=== PATIENT | male | born 1955 | race Caucasian/White ===

== ENCOUNTER 2017-01-15 11:22 | Emergency (ER) | payer OTHER ==
[~2017-01-15] VITALS: Ht 177.8 cm; Wt 91.5 kg
[~2017-01-15 11:22] MED LIST: CETI10CA19 PO; GLIM4TAB3 PO; LISI10TA7 PO; METF10002 PO; NAPR500T3 PO; PRAV20TA4 PO
[2017-01-15 11:24] VITALS: TEMP 97.6; Ht 177.8 cm; Wt 91.5 kg
--- OUTSIDE RECORDS SUMMARY | 2017-01-15 11:26 | XMS REPORT | Continuity of Care Document ---
Author Author [facility] Organization [facility] Address Unknown Phone Unavailable Support Name Relationship Address Phone LUZ SOLITARIO DO Caregiver [address] [place] [address] MARINA SINGH II, MD Caregiver [address] [place] [phone] [place] Next Of Kin [id number] [id number] Insurance Providers Payer Name Policy Number Subscriber Name Relationship [employer] [id number] Aaron Miles 18 Self Advance Directives Directive Response Recorded Date/Time Advanced Directives Type None 08/13/14 12:55pm Problems Medical Problems Problem Onset Date Status Costochondritis, acute Unknown Active Medications Medication Dose Route Sig Days/Qty Instructions Order Date Discontinued Date Status Glimepiride 1 Tab PO GIVE WITH BREAKFAST BEST TAKEN WITH BREAKFAST. 04/19 Active Cetirizine HCl 1 Cap PO DAILY 08/13/14 Active Linagliptin/Metformin HCl 1 Tab PO TWICE A DAY 08/13/14 Active Naproxen 1 Tab PO TWICE A DAY 14 Qty 08/13/14 Active Social History Social History Problem Response Recorded Date/Time Tobacco Usage none 08/13/2014 1:01pm Query Response Start Date Stop Date Smoking Status Never smoker Hospital Discharge Instructions No hospital discharge instructions. Plan of Care No plan of care. Functional Status Query Response Date Recorded Physical Hygiene Self August 13, 2014 1:09pm Disabilities Visual August 13, 2014 1:09pm Devices Used Glasses August 13, 2014 1:09pm Dressing Self August 13, 2014 1:09pm Ambulation Self August 13, 2014 1:09pm Diet Self August 13, 2014 1:09pm Mental Status Alert August 13, 2014 1:29pm Disabilities Visual August 13, 2014 1:09pm Devices Used Glasses August 13, 2014 1:09pm Physical Hygiene Self August 13, 2014 1:09pm Dressing Self August 13, 2014 1:09pm Ambulation Self August 13, 2014 1:09pm Diet Self August 13, 2014 1:09pm Allergies, Adverse Reactions, Alerts Allergen Type Severity Reaction Status Last Updated No Known Allergies Active 08/13/14 Immunizations Name Given Type Hx Influenza Vaccination Y Jun Historical Hx Pneumococcal Vaccination No Historical Hx Influenza Vaccination Y Jun Historical Vital Signs Acute Vital Signs Vital Response Date/Time Temperature (Fahrenheit) 98.4 deg F (96.8 - 99.1) Temperature (Calculated Celsius) 36.78761 degrees C (36.0 - 37.3) Pulse Rate (adult) 69 bpm (60 - 100) Respiratory Rate 20 breaths/min (10 - 20) O2 Sat by Pulse Oximetry 95 % (90 - 100) Blood Pressure 118/65 mm Hg Height 5 ft 10 in Weight 211 lb Body Mass Index 30.0 kg/m^2 Results Test Source Date Result Interp. Ref. Range Comments [id number] Natriuretic Peptide August 13, 2014 12:43pm 39 PG/ML N 0 -175 Rule in cut points: <50 years old=450; 50-75 years old=900; >75 years old=1800; When utilizing ProBNP rule-in cut points, adjustment for impaired renal function is typically not required. Troponin I August 13, 2014 12:43pm < 0.012 ng/ml 0-0.12 Eosinophils # (Manual) August 13, 2014 12:43pm 0.2 T/MM3 N 0-0.5 Monocytes # (Manual) August 13, 2014 12:43pm 0.6 T/MM3 N 0-0.8 Lymphocytes # (Manual) August 13, 2014 12:43pm 2.9 T/MM3 N 1-4.8 Neutrophils # (Manual) August 13, 2014 12:43pm 5.6 T/MM3 N 1.8-7.7 Band Neutrophils # August 13, 2014 12:43pm 0.1 T/MM3 - Eosinophils % (Manual) August 13, 2014 12:43pm 2.0 % N 0-4 Monocytes % (Manual) August 13, 2014 12:43pm 6.0 % N 0-9.0 Lymphocytes % (Manual) August 13, 2014 12:43pm 31.0 % N 23-45 Band Neutrophils % August 13, 2014 12:43pm 1.0 % N 0-6 Neutrophils % (Manual) August 13, 2014 12:43pm 60.0 % N 33-66 Alanine Aminotransferase (ALT/SGPT) August 13, 2014 12:43pm 44 U/L N 21-72 Aspartate Amino Transf (AST/SGOT) August 13, 2014 12:43pm 31 U/L N 17- 59 Albumin/Globulin Ratio August 13, 2014 12:43pm 1.3 RATIO N 1.1-2.2 Globulin August 13, 2014 12:43pm 3.5 G/DL N 2.4-3.6 Albumin August 13, 2014 12:43pm 4.7 G/DL N 3.5-5.0 Total Protein August 13, 2014 12:43pm 8.2 G/DL N 6.3-8.2 Alkaline Phosphatase August 13, 2014 12:43pm 51 U/L N 38-126 Total Bilirubin August 13, 2014 12:43pm 0.60 MG/DL N 0.20-1.30 Calcium Level August 13, 2014 12:43pm 9.4 MG/DL N 8.4-10.2 Calculated Osmolality August 13, 2014 12:43pm 274 MOSM/KG N 261-280 Glucose Level August 13, 2014 12:43pm 73 MG/DL L 75-110 Glomerular Filtration Rate Calc August 13, 2014 12:43pm 69 - BUN/Creatinine Ratio August 13, 2014 12:43pm 16 RATIO N 6-26 Creatinine August 13, 2014 12:43pm 1.1 MG/DL N 0.8-1.5 Blood Urea Nitrogen August 13, 2014 12:43pm 18.0 MG/DL N 9-20 Anion Gap August 13, 2014 12:43pm 11 MEQ/L N 5-15 Carbon Dioxide Level August 13, 2014 12:43pm 30 MEQ/L N 22-30 Chloride Level August 13, 2014 12:43pm 101 MEQ/L N 98-107 Potassium Level August 13, 2014 12:43pm 4.2 MEQ/L N 3.6-5 Sodium Level August 13, 2014 12:43pm 142 MEQ/L N 134-144 Turbidity August 13, 2014 12:43pm < 20 0-20 Chemistry Specimen Hemolysis August 13, 2014 12:43pm 37 H 0-25 0-25: No Hemolysis.26-70: Slight Hemolysis - can falsely elevate K and Urine Protein. 71-285: Moderate Hemolysis - can falsely elevate K, Troponin I, CA 19-9, PTH, CSF GLucose, and Urine Protein, and can falsely decrease Phenytoin. 286-999: Gross Hemolysis - can falsely elevate K, Troponin I, CA 19-9, PTH, CSF Glucose, and Urine Protine, and can falsely decrease Phenytoin. Recommend specimen recollection. Icterus Index August 13, 2014 12:43pm < 2 0-7 Activated Partial Thromboplast Time August 13, 2014 12:43pm 28.6 SEC N 24-36 Prothromb Time International Ratio August 13, 2014 12:43pm 1.05 N 0.81 -1.09 THERAPUTIC RANGE=2.00-3.00 FOR ANTI-THROMBOSIS THERAPUTIC RANGE=2.50- 3.50 FOR IMPLANTED VALVE Mean Platelet Volume August 13, 2014 12:43pm 9.5 UM3 N 9.4-12.4 Platelet Count August 13, 2014 12:43pm 264 T/MM3 N 130-400 RDW Standard Deviation August 13, 2014 12:43pm 43.0 FL N 36.9-50.2 Mean Corpuscular Hemoglobin Concent August 13, 2014 12:43pm 33.2 GM/DL N 31-37 Mean Corpuscular Hemoglobin August 13, 2014 12:43pm 30.0 UUG N 26-34 Mean Corpuscular Volume August 13, 2014 12:43pm 90.4 UM3 N 80-100 Hematocrit August 13, 2014 12:43pm 48.8 % N 41-53 Hemoglobin August 13, 2014 12:43pm 16.2 GM/DL N 13.5-17.5 Red Blood Count August 13, 2014 12:43pm 5.40 M/MM3 N 4.50-5.90 White Blood Count August 13, 2014 12:43pm 9.4 T/MM3 N 4.5-11.0 Name: AARON MILES Unit #: [id number] : 1955 Sex: M [facility]: ED DOS: 08/13/14 Signed Report #: [id number] DIAGNOSTIC IMAGING REPORT TYPE OF EXAM: CHEST 1 VIEW Dictated By: CAROLINE MCCORD MD INDICATION: ITS.REASON: chest pain CHEST 1 VIEW: Comparison: None FINDINGS: The lungs are clear. There is no abnormal airspace opacity, pleural effusion or pneumothorax identified. The heart size, pulmonary vasculature and mediastinum are within normal limits. No significant skeletal abnormality is seen. IMPRESSION: No acute cardiopulmonary abnormality. . Procedures No known history of procedures. Encounters Encounter Location Date/Time Registered Emergency Room 08/13/14 12:23pm Recent Diagnosis
--- OUTSIDE RECORDS SUMMARY | 2017-01-15 11:26 | XMS REPORT | Continuity of Care Document ---
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] 08/24/2015 Hargrove DO, Woody H F D69.6 THROMBOCYTOPENIA, UNSPECIFIED 08/24/2015 Hargrove DO, Woody H F D70.9 NEUTROPENIA, UNSPECIFIED 08/24/2015 Hargrove DO, Woody H F D72.819 DECREASED WHITE BLOOD CELL COUNT, UNSPECIFIED 08/24/2015 Hargrvoe DO, Woody H F E11.9 TYPE 2 DIABETES MELLITUS WITHOUT COMPLICATIONS 08/24/2015 Hargrove DO, Woody H F E78.5 HYPERLIPIDEMIA, UNSPECIFIED 08/24/2015 Hargrove DO, Woody H F I10 ESSENTIAL (PRIMARY) HYPERTENSION 08/24/2015 Hargrove DO Woody H F J45.909 UNSPECIFIED ASTHMA, UNCOMPLICATED 08/24/2015 Hargrove DO, Woody H F R16.1 SPLENOMEGALY, NOT ELSEWHERE CLASSIFIED 08/24/2015 Hargrove DO Woody H A R50.9 FEVER, UNSPECIFIED 09/06/2015 A90 Dengue fever [classical dengue] MARISOL DIEHL MD 09/06/2015 D69.6 Thrombocytopenia, unspecified MARISOL DIEHL MD 09/06/2015 D72.829 Elevated white blood cell count, unspecified MARISOL DIEHL MD 09/06/2015 R16.1 Splenomegaly, not elsewhere classified MARISOL DIEHL MD Procedures Code Description [place] [address] Initial hospital care, per day, for the evaluation and management of a patient, which requires these MARISOL DIEHL MD 11/22/2015 85036 Subsequent hospital care, per day, for the evaluation and management of a patient, which requires at MARISOL DIEHL MD 11/22/2015 96898 Subsequent hospital care, per day, for the evaluation and management of a patient, which requires at MARISOL DIEHL MD 11/22/2015 47589 Initial hospital care, per day, for the evaluation and management of a patient, which requires these MARISOL DIEHL MD 12/16/2015 91984 Subsequent hospital care, per day, for the evaluation and management of a patient, which requires at MARISOL DIEHL MD 12/16/2015 96907 Subsequent hospital care, per day, for the evaluation and management of a patient, which requires at MARISOL DIEHL MD 12/16/2015 Results Test Result Range MRSA SURVEILLANCE SCREEN - 08/24/15 15:32 Microbiology GLUCOSE (POC) - 08/24/15 15:48 GLUCOSE (POC) 59 mg/dL 70-99 METABOLIC PANEL, COMPREHN - 08/24/15 19:22 POTASSIUM 3.8 mmol/L 3.5-5.3 EST GFR (MDRD) 56 mL/min > 59 ANION GAP 4 mmol/L 5-15 EST CrCl (CG) > 60 mL/min > 59 GLUCOSE 83 mg/dL 70-99 CALCIUM 7.1 mg/dL 8.5-10.1 BLOOD UREA NITROGEN 17 mg/dL 7-20 CREATININE 1.3 mg/dL 0.7-1.3 SODIUM 137 mmol/L 135-148 CHLORIDE 103 mmol/L 98-110 AST/SGOT 61 Units/L 10-37 ALT/SGPT 48 Units/L < 66 CARBON DIOXIDE 30 mmol/L 21-32 TOTAL PROTEIN 6.2 gm/dL 6.4-8.2 ALBUMIN 2.7 gm/dL 3.4-5.0 BILI TOTAL 0.4 mg/dL 0.0-1.0 ALKALINE PHOSPHATASE TOTAL 38 IU/L 45- 117 LIPID PANEL - 08/24/15 19:22 CHOLESTEROL/HDL RATIO 4.4 < 5.0 LDL CHOLESTEROL 13 mg/dL < 100 VLDL CHOLESTEROL 38 mg/dL < 30 TRIGLYCERIDES 191 mg/dL < 150 CHOLESTEROL 66 mg/dL < 200 HDL CHOLESTEROL 15 mg/dL > 39 PHOSPHORUS - 08/24/15 19:22 PHOSPHORUS 2.6 mg/dL 2.5-4.9 CREATINE KINASE (CK/CPK) - 08/24/15 19:22 CREATINE KINASE (CK/CPK) 71 Units/L < 309 MAGNESIUM - 08/24/15 19:22 MAGNESIUM 1.6 mg/dL 1.8-2.4 TROPONIN I - 08/24/15 19:22 TROPONIN I 0.04 ng/mL < 0.07 HEMOGLOBIN A1C - 08/24/15 19:22 HEMOGLOBIN A1C 6.7 % < 5.7 BLOOD CULTURE - 08/24/15 20:10 Microbiology BC REFLEX LACTIC ACID - 08/24/15 20:22 LACTIC ACID 1.8 mmol/L 0.5-2.0 CBC W/DIFF - 08/24/15 20:22 GRANULOCYTE # 1.7 k/cumm 2.0-9.0 LYMPHOCYTE # 0.6 k/cumm 1.0-4.0 LYMPHOCYTE % 24 % 20-30 MEAN CELL HGB 30.7 pg 27.0-33.0 MEAN CELL HGB CONCENTRATION 34.3 g/dL 32.0-37.0 MEAN CELL VOLUME 89.6 fl 80.0-100.0 MONOCYTE # 0.4 k/cumm 0.1-1.0 MONOCYTE % 14 % 4-6 RED BLOOD CELL 4.82 m/cumm 4.00-6.00 RED CELL DISTRIBUTION WIDTH 13.0 % 11.0- 15.6 WHITE BLOOD CELL 2.7 k/cumm 5.0-10.0 HEMOGLOBIN 14.8 gm/dL 14.0-18.0 HEMATOCRIT 43.2 % 40.0-54.0 PLATELET COUNT 23 k/cumm 150-400 REACTIVE LYMPH NOTED MANUAL DIFF(R) - 08/24/15 20:22 BAND % 24 % 0-10 DIFFERENTIAL MANUAL RBC MORPH NOTED SEGMENTED NEUTROPHIL % 38 % 50-70 LACTATE DEHYDROGENASE (LDH/LD) - 08/24/15 20:22 LACTATE DEHYDROGENASE (LDH/LD) 238 Units/L 81-234 PROTHROMBIN TIME WITH INR - 08/24/15 20:22 INTERNATIONAL NORMAL RATIO 1.0 0.9-1.1 PROTHROMBIN TIME 11.7 sec 9.3-12.2 PARTIAL THROMBOPLASTIN TIME - 08/24/15 20:22 PARTIAL THROMBOPLASTIN TIME 39 sec 23-39 FIBRINOGEN - 08/24/15 20:22 FIBRINOGEN 257 mg/dL 200-400 D-DIMER QUANT - 08/24/15 20:22 D-DIMER QUANT 372 ng/mL 0-229 PLATELET COUNT - 08/24/15 20:22 PLATELET COUNT 23 k/cumm 150-450 MALARIA SMEAR - 08/24/15 20:22 Microbiology BLOOD CULTURE - 08/24/15 20:22 Microbiology AB DENGUE FEVER - 08/24/15 20:22 AB DENGUE FEVER IGG 6.30 < 0.90 AB DENGUE FEVER IGM 8.63 < 0.90 GLUCOSE (POC) - 08/24/15 21:48 GLUCOSE (POC) 102 mg/dL 70-99 CBC W/DIFF - 08/25/15 03:06 BASOPHIL # 0.1 k/cumm 0.0-0.2 BASOPHIL % 4 % 0-1 EOSINOPHIL # 0.0 k/cumm 0.1-0.5 EOSINOPHIL % 1 % 2-4 GRANULOCYTE # 1.1 k/cumm 2.0-9.0 GRANULOCYTE % 40 % 50-75 LYMPHOCYTE # 1.0 k/cumm 1.0-4.0 LYMPHOCYTE % 36 % 20-30 MEAN CELL HGB 30.8 pg 27.0-33.0 MEAN CELL HGB CONCENTRATION 34.2 g/dL 32.0-37.0 MEAN CELL VOLUME 90.1 fl 80.0-100.0 MONOCYTE # 0.5 k/cumm 0.1-1.0 MONOCYTE % 18 % 4-6 RED BLOOD CELL 4.77 m/cumm 4.00-6.00 RED CELL DISTRIBUTION WIDTH 13.1 % 11.0- 15.6 WHITE BLOOD CELL 2.7 k/cumm 5.0-10.0 HEMOGLOBIN 14.7 gm/dL 14.0-18.0 HEMATOCRIT 43.0 % 40.0-54.0 PLATELET COUNT 21 k/cumm 150-400 METABOLIC PANEL, [facility] - 08/25/15 03:06 POTASSIUM 3.9 mmol/L 3.5-5.3 EST GFR (MDRD) > 60 mL/min > 59 ANION GAP 8 mmol/L 5-15 EST CrCl (CG) > 60 mL/min > 59 GLUCOSE 81 mg/dL 70-99 CALCIUM 7.3 mg/dL 8.5-10.1 BLOOD UREA NITROGEN 16 mg/dL 7-20 CREATININE 1.2 mg/dL 0.7-1.3 SODIUM 138 mmol/L 135-148 CHLORIDE 104 mmol/L 98-110 AST/SGOT 59 Units/L 10-37 ALT/SGPT 46 Units/L < 66 CARBON DIOXIDE 26 mmol/L 21-32 TOTAL PROTEIN 6.1 gm/dL 6.4-8.2 ALBUMIN 2.7 gm/dL 3.4-5.0 BILI TOTAL 0.3 mg/dL 0.0-1.0 ALKALINE PHOSPHATASE TOTAL 35 IU/L 45- 117 PHOSPHORUS - 08/25/15 03:06 PHOSPHORUS 3.2 mg/dL 2.5-4.9 MAGNESIUM - 08/25/15 03:06 MAGNESIUM 1.8 mg/dL 1.8-2.4 CREATINE KINASE (CK/CPK) - 08/25/15 03:06 CREATINE KINASE (CK/CPK) 78 Units/L < 309 TROPONIN I - 08/25/15 03:06 TROPONIN I 0.04 ng/mL < 0.07 URINALYSIS, ROUTINE - 08/25/15 05:45 UA LEUKOCYTE ESTERASE DIPSTICK NEGATIVE NEGATIVE UA NITRITE DIPSTICK NEGATIVE NEGATIVE UA PROTEIN DIPSTICK TRACE NEGATIVE UA GLUCOSE DIPSTICK NEGATIVE NEGATIVE UA KETONE DIPSTICK 1+ NEGATIVE UA UROBILINOGEN DIPSTICK NORMAL NORMAL UA BILIRUBIN DIPSTICK NEGATIVE NEGATIVE UA BLOOD DIPSTICK TRACE NEGATIVE UA SPECIFIC GRAVITY 1.027 1.015-1.025 UR PH 5.0 5.0-7.0 UA MICROSCOPIC - 08/25/15 05:45 UA BACTERIA 2+ NEGATIVE UA EPITHELIAL CELLS 1+ epi/hpf 0 - 1+ UA MUCUS 3+ NEG TO 1+ UA RBC 0-3 rbc/hpf 0 - 3 UA VOLUME FOR EXAM 12.0 mL (12mL STD) UA WBC 0-1 wbc/hpf 0 - 5 GLUCOSE (POC) - 08/25/15 05:46 GLUCOSE (POC) 86 mg/dL 70-99 GLUCOSE (POC) - 08/25/15 10:07 GLUCOSE (POC) 107 mg/dL 70-99 MALARIA SMEAR - 08/25/15 12:06 Microbiology GLUCOSE (POC) - 08/25/15 20:55 GLUCOSE (POC) 126 mg/dL 70-99 METABOLIC PANEL, [facility]PRE[facility] - 08/26/15 05:26 POTASSIUM 4.1 mmol/L 3.5-5.3 EST GFR (MDRD) > 60 mL/min > 59 ANION GAP 5 mmol/L 5-15 EST CrCl (CG) > 60 mL/min > 59 GLUCOSE 97 mg/dL 70-99 CALCIUM 7.5 mg/dL 8.5-10.1 BLOOD UREA NITROGEN 15 mg/dL 7-20 CREATININE 1.2 mg/dL 0.7-1.3 SODIUM 138 mmol/L 135-148 CHLORIDE 107 mmol/L 98-110 AST/SGOT 59 Units/L 10-37 ALT/SGPT 42 Units/L < 66 CARBON DIOXIDE 26 mmol/L 21-32 TOTAL PROTEIN 6.1 gm/dL 6.4-8.2 ALBUMIN 2.6 gm/dL 3.4-5.0 BILI TOTAL 0.4 mg/dL 0.0-1.0 ALKALINE PHOSPHATASE TOTAL 38 IU/L 45- 117 PHOSPHORUS - 08/26/15 05:26 PHOSPHORUS 2.2 mg/dL 2.5-4.9 MAGNESIUM - 08/26/15 05:26 MAGNESIUM 2.0 mg/dL 1.8-2.4 CBC W/DIFF - 08/26/15 05:26 BASOPHIL # 0.1 k/cumm 0.0-0.2 BASOPHIL % 1 % 0-1 GRANULOCYTE # 2.3 k/cumm 2.0-9.0 LYMPHOCYTE # 2.6 k/cumm 1.0-4.0 LYMPHOCYTE % 43 % 20-30 MEAN CELL HGB 30.7 pg 27.0-33.0 MEAN CELL HGB CONCENTRATION 34.7 g/dL 32.0-37.0 MEAN CELL VOLUME 88.4 fl 80.0-100.0 MONOCYTE # 1.1 k/cumm 0.1-1.0 MONOCYTE % 18 % 4-6 NUCLEATED RED BLOOD CELL 1 /100 WBC RED BLOOD CELL 4.99 m/cumm 4.00-6.00 RED CELL DISTRIBUTION WIDTH 12.9 % 11.0- 15.6 WHITE BLOOD CELL 6.0 k/cumm 5.0-10.0 HEMOGLOBIN 15.3 gm/dL 14.0-18.0 HEMATOCRIT 44.1 % 40.0-54.0 PLATELET COUNT 11 k/cumm 150-400 REACTIVE LYMPH NOTED MANUAL DIFF(R) - 08/26/15 05:26 BAND % 3 % 0-10 DIFFERENTIAL MANUAL RBC MORPH NORMAL SEGMENTED NEUTROPHIL % 35 % 50-70 GLUCOSE (POC) - 08/26/15 05:58 GLUCOSE (POC) 106 mg/dL 70-99 GLUCOSE (POC) - 08/26/15 10:29 GLUCOSE (POC) 183 mg/dL 70-99 GLUCOSE (POC) - 08/26/15 12:27 GLUCOSE (POC) 153 mg/dL 70-99 GLUCOSE (POC) - 08/26/15 14:53 GLUCOSE (POC) 188 mg/dL 70-99 GLUCOSE (POC) - 08/26/15 20:39 GLUCOSE (POC) 159 mg/dL 70-99 [facility] - 08/27/15 05:41 POTASSIUM 3.9 mmol/L 3.5-5.3 EST GFR (MDRD) > 60 mL/min > 59 ANION GAP 6 mmol/L 5-15 EST CrCl (CG) > 60 mL/min > 59 GLUCOSE 119 mg/dL 70-99 CALCIUM 7.6 mg/dL 8.5-10.1 BLOOD UREA NITROGEN 13 mg/dL 7-20 CREATININE 1.2 mg/dL 0.7-1.3 SODIUM 137 mmol/L 135-148 CHLORIDE 104 mmol/L 98-110 AST/SGOT 63 Units/L 10-37 ALT/SGPT 42 Units/L < 66 CARBON DIOXIDE 27 mmol/L 21-32 TOTAL PROTEIN 6.9 gm/dL 6.4-8.2 ALBUMIN 3.0 gm/dL 3.4-5.0 BILI TOTAL 0.5 mg/dL 0.0-1.0 ALKALINE PHOSPHATASE TOTAL 49 IU/L 45- 117 PHOSPHORUS - 08/27/15 05:41 PHOSPHORUS 2.3 mg/dL 2.5-4.9 MAGNESIUM - 08/27/15 05:41 MAGNESIUM 2.2 mg/dL 1.8-2.4 CBC W/DIFF - 08/27/15 05:41 BASOPHIL # 0.3 k/cumm 0.0-0.2 BASOPHIL % 4 % 0-1 COMMENT REVIEWED EOSINOPHIL # 0.2 k/cumm 0.1-0.5 EOSINOPHIL % 2 % 2-4 GRANULOCYTE # 2.5 k/cumm 2.0-9.0 GRANULOCYTE % 39 % 50-75 LYMPHOCYTE # 2.6 k/cumm 1.0-4.0 LYMPHOCYTE % 39 % 20-30 MEAN CELL HGB 30.8 pg 27.0-33.0 MEAN CELL HGB CONCENTRATION 35.1 g/dL 32.0-37.0 MEAN CELL VOLUME 87.9 fl 80.0-100.0 MONOCYTE # 0.9 k/cumm 0.1-1.0 MONOCYTE % 14 % 4-6 RED BLOOD CELL 5.22 m/cumm 4.00-6.00 RED CELL DISTRIBUTION WIDTH 12.9 % 11.0- 15.6 WHITE BLOOD CELL 6.6 k/cumm 5.0-10.0 HEMOGLOBIN 16.1 gm/dL 14.0-18.0 HEMATOCRIT 45.9 % 40.0-54.0 PLATELET COUNT 22 k/cumm 150-400 REACTIVE LYMPH NOTED GLUCOSE (POC) - 08/27/15 06:08 GLUCOSE (POC) 110 mg/dL 70-99 GLUCOSE (POC) - 08/27/15 11:24 GLUCOSE (POC) 218 mg/dL 70-99 Encounters ACCT No. Visit Date/Time Discharge Status Pt. Type Provider Facility Loc./Unit Complaint [id number] 08/24/2015 14:20:00 2014 14:23:00 DIS Inpatient Woody Hargrove DO [facility] [id number]
--- OUTSIDE RECORDS SUMMARY | 2017-01-15 11:26 | XMS REPORT | Continuity of Care Document ---
Author Author [facility] Organization [facility] Address Unknown Phone Unavailable Support Name Relationship Address Phone MARINA SINGH II, MD Caregiver [address] [place] [address] [address] [place] [address] Unavailable PEG RAMOS MD Caregiver [address] [place] [address] [place] [address] Unavailable [place] Next Of Kin [phone] [address] Insurance Providers Guarantor Aaron Miles Address [address] [address] Email [email or web address] Aid Policy Number [id number] Subscriber's Name Aaron Miles Relationship 18 Self Advance Directives Directive Response Recorded Date/Time Dr Ramirez Resuscitation Status Full Code 11/11/16 12:10pm Resuscitation Documents on File No 11/12/16 6:51am DPOA for Healthcare Only Y OR SON 11/12/16 6:51am Living Will Yes 11/12/16 6:51am Problems Active Problems Medical Problem Onset Date Status Costochondritis, acute Unknown Acute Neutropenia Unknown Acute Thrombocytopenia Unknown Acute Viral illness Unknown Acute Medications Current Home Medications Medication Dose Units Route Directions Days Qty Instructions Start Date Cetirizine Hcl (Zyrtec) 10 Mg Capsule 1 Cap Oral Daily 08/13/14 Glimepiride 4 Mg Tablet 1 Tab Oral Give With Breakfast 08/13/14 Lisinopril 10 Mg Tablet 10 Mg Oral Daily for Hypertension Metformin Hcl 1,000 Mg Tablet 1 Tab Oral Twice Daily With Meals Take one tablet, by mouth, twice daily with meals 11/11/16 Naproxen 500 Mg Tablet 1 Tab Oral Twice A Day 08/24/15 Pravastatin Sodium 20 Mg Tablet 20 Mg Oral Bedtime Take 1 tablet, by mouth, daily at bedtime. 11/11/16 Social History Social History Problem Response Recorded Date/Time Onset Date Status Reason for Hospitalization COLONOSCOPY 11/12/2016 8:10am Not Applicable Not Applicable Chewing Tobacco Status No 11/11/2016 9:05am Not Applicable Not Applicable Hx Substance Use No 11/11/2016 9:05am Not Applicable Not Applicable Hx Alcohol Use No 11/11/2016 9:05am Not Applicable Not Applicable Has the pt used tobacco in the last 12 months No 11/11/2016 9:05am Not Applicable Not Applicable Tobacco Usage none 08/13/2014 1:01pm Not Applicable Not Applicable Query Response Start Date Stop Date Smoking Status Never smoker Hospital Discharge Instructions Instructions: Care Instructions: I was in the hospital because (patient own words): COLONOSCOPY Discharge Diet: You may resume your usual diet. Discharge Activity: You may resume your usual activity. Follow Up Appointments: No specific follow-up appointment with Dr. Ramos is necessary. You can call his office for any questions or concerns. Pending Lab / Results: No Pending Lab Patient Instructions: Do not drive, operate machinery, drink alcohol, or sign important papers for 24 hours. Expected Signs/Symptoms: You may have some gas discomfort. Notify Physician If: Contact if you have a fever over 101 degrees, severe abdominal pain, or severe rectal bleeding. During Business Hours:: During office hours, call Dr. Ramos's office at [phone]. After Business Hours:: Rachelle or the covering physician. Pain Management/Treatment: You should not have significant pain following the procedure. Wound/Incision Care: No wound care required. Condition at time of discharge: Good Plan of Care Discharge Date 11/12/16 8:33am Instructions/Education Provided [facility] Surgical Services Prescriptions See Medication Section Functional Status Query Response Date Recorded Ability to complete ADL's impeded by No change November 12, 2016 6:51am Allergies, Adverse Reactions, Alerts No known allergies. Immunizations Query Response on File Recorded Date/Time Hx Influenza Vaccination No 11/11/16 9:05am Hx Pneumococcal Vaccination No 11/11/16 9:05am Hx Influenza Vaccination No 11/11/16 9:05am Vital Signs Acute Vital Signs Vital Response Date/Time Temperature (Fahrenheit) 97.1 deg F (96.8 - 99.1) 11/12/2016 8:20am Temperature (Calculated Celsius) 36.75577 degrees C (36.0 - 37.3) 11/12/2016 8:20am Temperature Source Temporal 11/12/2016 8:20am Pulse Rate (adult) 60 bpm (60 - 100) 11/12/2016 8:20am Respiratory Rate 18 breaths/min (10 - 20) 11/12/2016 8:20am O2 Sat by Pulse Oximetry 95 % (90 - 100) 11/12/2016 8:20am Oxygen Delivery Method Room Air 11/12/2016 8:20am Blood Pressure 112/61 mm Hg 11/12/2016 8:20am Blood Pressure Source Automatic Cuff 11/12/2016 8:20am Height (Feet) 5 feet 11/12/2016 6:24am Height (Inches) 10.50 inches 11/12/2016 6:24am Weight (Kilograms) 92.600 kg 11/12/2016 6:24am Body Mass Index (BMI) 28.9 11/12/2016 6:24am Results Laboratory Results Test Name Result Units Flags Reference Collection Date/Time Result Date/ Time Comments Glucometer 185 mg/dL H 75-110 11/12/2016 7:05am 11/12/2016 7:10am Procedures Procedure Status Date Provider(s) Colonoscopy Completed 11/12/16 PEG RAMOS MD Encounters Encounter Location Arrival/Admit Date Discharge/Depart Date Attending Provider Departed [facility] 11/12/16 5:53am 11/12/16 8: 33am PEG RAMOS MD
[2017-01-15] MEDS ORDERED: NORMAL SALINE 1,000 ML IV ONE (11:32)
[2017-01-15] MEDS ORDERED: ONDANSETRON 4mg/2ml INJECTION IV ONE (11:45)
[2017-01-15] MEDS ORDERED: TAMSULOSIN 0.4 MG CAPSULE PO ONE (11:45)
[2017-01-15] MEDS ORDERED: KETOROLAC 30mg/ml INJECTION IV ONE (11:45)
[2017-01-15] MEDS ORDERED: LISI1TAB13 PO (11:47)
[2017-01-15] MEDS ORDERED: ACET325T51 PO (11:49)
--- OUTSIDE RECORDS SUMMARY | 2017-01-15 11:57 | XMS REPORT | Continuity of Care Document ---
Author Author [facility] Organization [facility] Address Unknown Phone Unavailable Support Name Relationship Address Phone LUZ SOLITARIO DO Caregiver [facility] [address] [place] [address] MARINA SINGH II, MD Caregiver [address] [place] [phone] [place] Next Of Kin [id number] [id number] Insurance Providers Payer Name Policy Number Subscriber Name Relationship [employer] [id number] Aaron Miles 18 Self Advance Directives Directive [...] F (96.8 - 99.1) Temperature (Calculated Celsius) [phone] degrees C (36.0 - 37.3) Pulse Rate (adult) 69 bpm (60 - 100) Respiratory Rate 20 breaths/min (10 - 20) O2 Sat by Pulse Oximetry 95 % (90 - 100) Blood Pressure 118/65 mm Hg Height 5 ft 10 in Weight 211 lb Body Mass Index 30.0 kg/m^2 Results Test Source Date Result Interp. Ref. Range Comments RO-Qvy-G-Type Natriuretic Peptide August 13, 2014 12:43pm 39 [...] N 4.5-11.0 Name: AARON MILES Unit #: [id number] : 1955 Sex: M [facility] [place]: ED DOS: 08/13/14 Signed Report #: [id number] DIAGNOSTIC IMAGING REPORT TYPE OF EXAM: CHEST [...] Encounters Encounter Location Date/Time Registered Emergency Room [facility] 08/13/14 12:23pm Recent Diagnosis
--- OUTSIDE RECORDS SUMMARY | 2017-01-15 11:58 | XMS REPORT | Continuity of Care Document ---
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 [...] Procedures Code [place] [address] Initial hospital care, per day, for the evaluation and management of a patient, which requires these MARISOL DIEHL MD 11/22/2015 78359 Subsequent hospital care, per day, for the evaluation and management of a patient, which requires at MARISOL DIEHL MD 11/22/2015 60229 Subsequent hospital care, per day, for the evaluation and management of a patient, which requires at MARISOL DIEHL MD 11/22/2015 55024 Initial hospital care, per day, for the evaluation and management of a patient, which requires these MARISOL DIEHL MD 12/16/2015 38513 Subsequent hospital care, per day, for the evaluation and management of a patient, which requires at MARISOL DIEHL MD 12/16/2015 19180 Subsequent hospital care, per day, for the [...] PLATELET COUNT 21 k/cumm 150-400 METABOLIC PANEL, [facility] - 08/25/15 03:06 POTASSIUM 3.9 mmol/L 3.5-5.3 [...] GLUCOSE (POC) 159 mg/dL 70-99 [facility] 08/27/15 05:41 POTASSIUM 3.9 mmol/L 3.5-5.3 [...] Status Pt. Type Provider Facility Loc./Unit Complaint [id number] 08/24/2015 14:20:00 2014 14:23:00 DIS Inpatient Woody Hargrove DO [facility] [id number]
[2017-01-15 12:01] LABS: HCT - HEMATOCRIT 43.5 % (41-53); HGB - HEMOGLOBIN 14.9 GM/DL (13.5-17.5); MEAN CORPUSCULAR HGB 30.7 UUG (26-34); MEAN CORPUSCULAR HGB CONC(MCHC 34.3 GM/DL (31-37); MEAN CORPUSCULAR VOLUME 89.7 UM3 (80-100); MEAN PLATELET VOLUME 10.3 UM3 (9.4-12.4); RED BLOOD COUNT 4.85 M/MM3 (4.50-5.90); WBC - WHITE BLOOD COUNT 15.7 T/MM3 (4.5-11.0)
[2017-01-15 12:12] LABS: ANION GAP 17 MEQ/L (5-15); BUN/CREATININE RATIO 15 RATIO (6-26); CHLORIDE 101 MEQ/L (98-107); CO2 - CARBON DIOXIDE 23 MEQ/L (22-30); CREATININE 1.9 MG/DL (0.8-1.5); GLOMERULAR FILTRATION RATE 36; GLUCOSE 307 MG/DL (75-110); POTASSIUM 5.9 MEQ/L (3.6-5); SODIUM 141 MEQ/L (134-144)
--- NOTE | 2017-01-15 12:17 | NUR ---
RETURNED FROM [facility]
[2017-01-15 12:36] LABS: BAND NEUTROPHILS # 1.1 T/MM3; BASOPHILS # (MANUAL) 0.2 T/MM3 (0-0.2); LYMPHOCYTES # (MANUAL) 1.3 T/MM3 (1-4.8); MONOCYTES # (MANUAL) 0.3 T/MM3 (0-0.8); NEUTROPHILS #(MANUAL)-ABSOLUTE 12.9 T/MM3 (1.8-7.7); TOTAL CELLS COUNTED 100 %
--- NOTE | 2017-01-15 12:52 | NUR ---
OUTPUT PT STOOD TO VOID-120 CC. SAYS HE WASN'T DIZZY NOW. PAIN 03/15
--- NOTE | 2017-01-15 12:54 | ERPDOC ---
Departure Disposition Decision Date: January 15, 2017 Disposition Decision Time: 13:14 Disposition: 01 DISCHARGED HOME, SELF-CARE Impression Impression Impression: Primary Impression: Hematuria Additional Impressions: Left flank pain Liver mass Inguinal hernia bilateral, non-recurrent Obstruction and gangrene presence: without obstruction or gangrene Recurrence : non-recurrent Qualified Codes: K40.20 - Bilateral inguinal hernia, without obstruction or gangrene, not specified as recurrent Severity: Severe Condition: Improved Seen By: Physician only Referrals: MARINA SINGH II, MD (Family) 1 Week Patient Instructions: Flank Pain (ED) Problems/Meds/Labs Reviewed?: Yes Medications reviewed and manag: Yes Additional Instructions: You had flank pain and blood in your urine, which are consistent with a possible stone. CT did not show a stone, but did show two liver abnormalities and inguinal hernias. Take naproxen as needed for pain and drink lots of fluids. Follow up with your doctor next week. Follow up care ordered?: Yes Mental Status: Alert, Oriented HPI - Male General Chief Complaint: Flank Pain Stated Complaint: ABD PAIN Time Seen by Provider: 11:32 Source: patient, family Exam Limitations: no limitations HPI - Male Initial Comments 61yo man presents to the ER today for left flank pain. Pain started around 0900 today, is colicky, crescendo/decrescendo. Took tylenol, but vomited it up. Has never had a kidney stone or pain like this. Occurred At: work Onset: Rapid Duration: 4-6 hrs Pain Scale: Now & Worst: 10/10 Severity/Quality: cramping, sharpness, stabbing Location: left flank Radiation: groin Activities at Onset: rest Prior Genitourinary Problems: none Modifying Factors: IMPROVES WITH: analgesics Associated Symptoms: urinary frequency Hx of Similar Symptoms: No Allergies: Coded Allergies: No Known Allergies (Unverified , 01/15/17) Past History Past Medical History Metabolic: diabetes Respiratory: asthma Surgical History General: tonsils Family History Family PMH: FOUND: other Vaccines Hx Influenza Vaccination: No Hx Pneumococcal Vaccination: No Social History Does patient use chewing tobac: No Second Hand Exposure: No Substance Use Type: does not use Sexuality: female partner Review of Systems GI Upper Abdomen: nausea, vomiting General: frequency, urgency All other Systems All Other Systems: Reviewed and Negative Physical Exam General General Nourishment: well nourished, well developed, appears stated age, no acute distress, adult, obese General Body Habitus: well groomed Vitals and Pain First Documented Vital Signs Date Time Temp Pulse Resp B/P Pulse Ox O2 Delivery O2 Flow Rate FiO2 01/15/17 11:24 97.6 60 16 130/60 94 Room Air Weight: Kilograms: 91.500 Height (feet): 5 Height (inches): 10.00 Triage Pain Scale: RN VS reviewed by Provider: Yes Normal Exams: Head: Normocephalic w/o trauma Eyes: Pupils are PERRLA w/ EOMI, No scleral icterus, irritation ENMT: No facial trauma, nasal exudates, pharyngeal erythema Neck: Full range of motion, without adenopathy, JVD Lymphatic: No lymphadenopathy Musculoskeletal: No tenderness, or deformity noted Integumentary: No rashes, hives, or bruising noted Neurologic: Patient is alert, and oriented Psychiatric: Patient exhibits, appropriate attention Respiratory (brief) Respiratory: FOUND: clear all wu, equal bilaterally, symmetrical, NOT FOUND : rales, wheezes Cardiovascular (brief) Cardiac: FOUND: regular rate, regular rhythm, NOT FOUND: click, gallop, murmur , pedal edema, peripheral edema, rub Capillary Refill: <2 sec Pulses: all distal extremities, equal, strong Abdomen (brief) Abdominal Brief: FOUND: bowel normo active x4, soft, NOT FOUND: distended, hepatosplenomegaly, pulsatile mass, tender Differential Diagnoses Considering: Pyelonephritis, Renal Colic, Ureteral Stone, Urinary Retention, UTI Progress Results/Orders Orders Procedure Category Date Status Time Cbc W/Auto LAB 01/15/17 Complete Diff-Reflex Manual 11:32 Bmp - Basic Metabolic LAB 01/15/17 Complete Panel 11:32 Iv Lock (Ed Only) EDM 01/15/17 Transmitted 11:32 Normal Saline (Normal PHA 01/15/17 Complete Saline Iv) 11:32 Ondansetron Inj PHA 01/15/17 Complete (Zofran) 11:45 Tamsulosin (Flomax PHA 01/15/17 Complete 0.4 Mg) 11:45 Ketorolac (Toradol) PHA 01/15/17 Complete 11:45 Ct Renal W/O Contrast CT 01/15/17 Resulted 11:32 Rejected Specimen LAB 01/15/17 Complete 12:03 UA, LAB 01/15/17 Complete Dip&Micro(Complete) & 12:50 Lab Results Laboratory Tests Test 01/15/17 11:52 01/15/17 12:03 01/15/17 12:10 01/15/17 12:50 Turbidity < 20 Sodium Level 141MEQ/L Potassium Level 5.9MEQ/L Chloride Level 101MEQ/L Carbon Dioxide Level 23MEQ/L Anion Gap 17MEQ/L Blood Urea Nitrogen 29.0MG/DL Creatinine 1.9MG/DL Glomerular Filtration Rate Calc 36 BUN/Creatinine Ratio 15RATIO Glucose Level 307MG/DL Calculated Osmolality 289MOSM/KG Calcium Level 10.0MG/DL Icterus Index < 2 Chemistry Specimen Hemolysis 37 Specimen Comment (Misc) Lab to recollect Tests Not Done Cbc Reason Tests Not Done Clotted specimen White Blood Count 15.7T/MM3 Red Blood Count 4.85M/MM3 Hemoglobin 14.9GM/DL Hematocrit 43.5% Mean Corpuscular Volume 89.7UM3 Mean Corpuscular Hemoglobin 30.7UUG Mean Corpuscular Hemoglobin Concent 34.3GM/DL RDW Standard Deviation 40.3FL Platelet Count 162T/MM3 Mean Platelet Volume 10.3UM3 Immature Granulocyte % (Auto) % Neutrophils (%) (Auto) % Lymphocytes (%) (Auto) % Monocytes (%) (Auto) % Eosinophils (%) (Auto) % Basophils (%) (Auto) % Absolute Immature Granulocyte (auto T/MM3 Absolute Neutrophils (auto) T/MM3 Absolute Lymphocytes (auto) T/MM3 Absolute Monocytes (auto) T/MM3 Absolute Eosinophils (auto) T/MM3 Absolute Basophils (auto) T/MM3 Neutrophils % (Manual) 82.0% Band Neutrophils % 7.0% Lymphocytes % (Manual) 8.0% Monocytes % (Manual) 2.0% Basophils % (Manual) 1.0% Absolute Neutrophils (Manual) 12.9T/MM3 Band Neutrophils # 1.1T/MM3 Lymphocytes # (Manual) 1.3T/MM3 Monocytes # (Manual) 0.3T/MM3 Basophils # (Manual) 0.2T/MM3 Red Cell Morphology Comment Normal Urine Collection Type Cleancatch-midstream Urine Color Yellow Urine Turbidity Clear Urine pH 5.5 Urine Specific [place] 1.020 Urine Protein Negative Urine Glucose (UA) 2+ Urine Ketones 1+ Urine Blood 3+ Urine Nitrite Negative Urine Bilirubin Negative Urine Urobilinogen 0.2EU/DL Urine Leukocyte Esterase Negative Urine RBC 5-10/HPF Urine WBC 0-1/HPF Urine Squamous Epithelial Cells 5-10 Urine Bacteria Trace Urine Hyaline Casts 0-1/LPF Urine Culture Indicated Cult not indicated Medications Current ED Medications Sodium Chloride (Normal Saline IV) 1,000 ml @ 0 mls/hr Q0M ONCE IV Last administered on 01/15/17 11:53; Start 01/15/17 at 11:32; Stop 01/15/17 at 11:34 ; Status DC Ondansetron HCl (Zofran) 4 mg O ONCE IV Last administered on 01/15/17 12:04; Start 01/15/17 at 11:45; Stop 01/15/17 at 11:46; Status DC Tamsulosin HCl (FLOMAX 0.4 mg) 0.4 mg O ONCE PO Last administered on 12:04; Start 01/15/17 at 11:45; Stop 01/15/17 at 11:46; Status DC Ketorolac Tromethamine (Toradol) 30 mg O ONCE IV Last administered on 12:02; Start 01/15/17 at 11:45; Stop 01/15/17 at 11:46; Status DC Progress Progress 61yo histrionic patient with s/s c/w ureterolithiasis. Awaiting results of CT renal; pt 'not able to give urine' secondary to 'dizziness'. After discussion of straight cath, pt opened eyes and stated that he 'might' be able to produce some urine. After discussing with radiologist, low suspicion for ureteral stone - there are some radiopaque 'ditzel's in pts bladder. Urine has ketones and blood. Suspect that pt already passed his stone. Discussed abnormal CT findings with pt. Will d /c to home with appropriate treatment and f/u. Pt voiced understanding of dx, prognosis, tx, and f/u needs. CT CT : CT: Renal no contrast Interpretation: Abnormal (1. Low density but not purely fluid-filled lesions in the liver one in the left lobe and a slightly larger lesion in the right lobe measuring just over 1.5 cm. 2. No obstruction to the kidneys or ureters. Bladder contour was unremarkable. 3. No obstruction or inflammatory changes in the bowel. Small inguinal hernias that did not contain bowel.), Discussed w/ Radiologist, Reviewed Written Report JANUARYSUZANNE DO January 15, 2017 12:54
[2017-01-15 12:56] LABS: BLOOD, URINE 3+ (NEGATIVE); COLOR,URINE YELLOW (YELLOW); LEUKOCYTE ESTERASE ,URINE NEGATIVE (NEGATIVE); NITRITE,URINE NEGATIVE (NEGATIVE); UROBILINOGEN,URINE 0.2 EU/DL (NORMAL)
--- NOTE | 2017-01-15 12:58 | NUR ---
REPORT TO GINI SOLORZANO
[2017-01-15 13:03] LABS: BACTERIA,URINE TRACE (NEGATIVE); HYALINE CASTS, URINE 0-1 /LPF; WBC,URINE 0-1 /HPF (0-5)
--- NOTE | 2017-01-15 13:07 | DI ---
Indication: ITS.REASON: L flank pain CT RENAL W/O CONTRAST: Comparison: None Technique: Patient scanned from above the diaphragm to below the pubic symphysis without oral or IV contrast. Dose reduction imaging technologies used as well as reformatted sagittal and coronal images. Findings: Heart size and lung bases are unremarkable. Patient shows a small indeterminate 1 cm low density in the left lobe of the liver. The right lobe shows a low density 1.5 cm lesion centrally. It is also low density although not purely cystic. Gallbladder shows no stones or wall thickening and there is no biliary ductal dilatation. Spleen is unremarkable Pancreas is unremarkable. Adrenal glands are both normal. Both kidneys show no obstruction, mass, cyst or abnormal calcifications. Retroperitoneum is unremarkable. No acute obstruction to the bowel is noted. No acute inflammatory changes noted in the bowel. Bladder is unremarkable. Bilateral fatty replaced inguinal hernias are seen. No free air or free fluid seen in the pelvis. Reformatted imaging shows degenerative changes at L5-S1 in the lumbar spine but no marked fractures or malalignments. Impression: 1. Low density but not purely fluid-filled lesions in the liver one in the left lobe and a slightly larger lesion in the right lobe measuring just over 1.5 cm. 2. No obstruction to the kidneys or ureters. Bladder contour was unremarkable. 3. No obstruction or inflammatory changes in the bowel. Small inguinal hernias that did not contain bowel. 4. Findings called ordering ER clinician when study provided. .
[2017-01-15 13:25] VITALS: BP 117/58; PULSE 90; RESP 16; O2SAT 97
== END 2017-01-15 13:25 | disposition home or self-care (01) ==
LOC: ED 11:22
DX: K40.20 Bilateral inguinal hernia, without obstruction or gangrene, not specified as recurrent (principal); R16.0 Hepatomegaly, not elsewhere classified; R31.9 Hematuria, unspecified
CPT/HCPCS: 36415; 74176; 80048; 81001; 85025; 96361; 96374; 96375; 99284; J1885; J2405; J7030